=== PATIENT | male | born 1950 | race Caucasian/White ===

== ENCOUNTER 2016-10-23 10:37 | Emergency (ER) | payer OTHER ==
[~2016-10-23] VITALS: Ht 177.8 cm; Wt 105.0 kg
[~2016-10-23 10:37] MED LIST: ALPH200T2 PO; ASPI-535 PO; BENA40TA41 PO; CARV6.25 PO; CITA20TA11 PO; CLOP75TA27 PO; CRES10 PO; DAPA5TAB PO; DIVA500T7 PO; FENO145T19 PO; FLAX100016 PO; GLIM4TAB PO; HYDR-3605 PO; LANT3I SC; METF850T PO; NIAC500T22 PO; OMEG-135 PO; OMEP20CA16 PO; PREG150C PO; QUET100T PO; SITA100T8 PO; VITA1TAB83 PO; [UNRECOGNIZED DRUG - CODE] PO
[2016-10-23 10:40] VITALS: Ht 177.8 cm; Wt 105.0 kg
[2016-10-23] MEDS ORDERED: ASPIRIN 81 MG TAB PO STA (11:20)
[2016-10-23] MEDS ORDERED: SOD CHLORIDE 0.9% 1,000 ML IV STA (11:20)
[2016-10-23 11:37] LABS: ADD SCAN DIFF NO
[2016-10-23 11:42] LABS: BASOPHILS % 0.6 % (0.0-2.0); EOSINOPHILS # 0.5 10^3/ul (0.0-0.5); EOSINOPHILS % 8.6 % (0.0-7.0); HEMATOCRIT 40.4 % (42.0-52.0); HEMOGLOBIN 13.4 g/dl (14.0-18.0); LYMPHOCYTES # 1.7 10^3/ul (0.8-2.9); LYMPHOCYTES % 27.6 % (15.0-51.0); MEAN CORPUSCULAR HEMOGLOBIN 26.6 pg (29.0-33.0); MEAN CORPUSCULAR HGB CONC 33.2 g/dl (32.0-37.0); MEAN CORPUSCULAR VOLUME 80.2 fl (82.0-101.0); MEAN PLATELET VOLUME 10.8 fl (7.4-10.4); MONOCYTE # 0.5 10^3/ul (0.3-0.9); MONOCYTES % 7.3 % (0.0-11.0); NEUTROPHIL # 3.4 10^3/ul (1.6-7.5); NEUTROPHILS % 54.6 % (39.0-77.0); PLATELET COUNT 126 10^3/UL (140-415); RED BLOOD COUNT 5.04 10^6/ul (4.70-6.10); WHITE BLOOD COUNT 6.2 10^3/ul (4.8-10.8)
--- NOTE | 2016-10-23 12:01 | RADRPT ---
PROCEDURE: XR Chest. CLINICAL INDICATION: Chest Pain. TECHNIQUE: PA and Lateral views of the chest were obtained. COMPARISON: Chest x-ray 07/29/2014 04:15 p.m. FINDINGS: The soft tissues are normal. There is a suboptimal inspiratory effort given the heart transverse co nfiguration. The heart, cardiomediastinal silhouette and hilar structures are normal. The pulmonary vasculature is normal. There is a left-sided aorta. There are osteophytes in the thoracic spine. T he lungs are clear. The costophrenic angles are normal. IMPRESSION: 1. Stable chest x-ray with no evidence of active cardiopulmonary disease. 2. Spondylosis of the thoracic spine. RPTAT:AAJJ Physician Pattie Date Time Electronically viewed and signed by Physician Pattie on 10/23/2016 12:00 DIEUDONNE/
[2016-10-23 12:07] LABS: ANION GAP 17 (8-16); BLOOD UREA NITROGEN 12 mg/dl (7-20); CARBON DIOXIDE 23 mmol/L (21-31); CHLORIDE 101 mmol/L (97-110); GLUCOSE 230 mg/dl (70-220); POTASSIUM 4.5 mmol/L (3.5-5.1); SODIUM 136 mmol/L (135-144)
[2016-10-23 12:09] LABS: INR 1.04; PROTIME 13.6 Sec (12.2-14.2); PT RATIO 1.1
[2016-10-23 12:10] LABS: PARTIAL THROMBOPLASTIN TIME 29.6 Sec (25.0-35.0)
[2016-10-23] MEDS ORDERED: IOHEXOL 100 ML ONE ×2 (12:18)
[2016-10-23] MEDS ORDERED: SOD CHLORIDE 0.9% 100 ML ONE (12:18)
[2016-10-23 12:25] LABS: TROPONIN-I < 0.012 ng/ml (0.00-0.12)
[2016-10-23] MEDS ORDERED: ONDA4TAB14 PO (14:59)
[2016-10-23 15:00] VITALS: BP 142/80; PULSE 76; RESP 18
--- NOTE | 2016-10-23 16:30 | RADRPT ---
PROCEDURE: CT Chest, Abdomen and Pelvis angiogram with contrast. CLINICAL INDICATION: Pain. TECHNIQUE: CT scan of the chest, abdomen, and pelvis with contrast was performed on a multi-detect or high-resolution CT scanner. The patient was scanned following the uncomplicated intravenous admi nistration of 100 cc of Isovue 300 intravenous contrast. Coronal and sagittal reformatted images we re obtained from the axial source images. Images were reviewed on a high-resolution PACS workstation . DOSE: CTDI = 49/20/16 mGy and the DLP = 1869 mGy-cm. One or more of the following dose reduction t echniques were used: Automated exposure control, Adjustment of the mA and/or kV according to patient size, and/or use of iterative reconstruction technique. COMPARISON: Abdominal CT 11/09/2015 FINDINGS: Vascular: No evidence of aortic dissection or aortic aneurysm. No intraluminal filling defects are identified in the main bilateral pulmonary arteries. The segmental and subsegmental pulmonary arteries are not well evaluated due to respiratory artifact. The celiac artery, superior mesenteric artery, and inf erior mesenteric arteries are patent. The renal arteries are patent bilaterally. The bilateral com mon iliac, external iliac and common femoral arteries are patent. A retro aortic left renal vein is seen. Coronary arterial and aortic atherosclerosis is identified. CT chest: Scattered bibasilar atelectasis. No mediastinal hematoma. The airway is patent. No pleural or pericardial effusion. No mediastinal or hilar lymphadenopathy is seen. CT abdomen and pelvis: Diffuse hypoattenuation of the liver. No pancreatic ductal dilatation. The spleen and adrenals are unremarkable. The portal vein is patent. The gallbladder is contracted. No focal pericholecystic inflammatory changes.No hydronephrosis. No evidence of bowel obstruction. No significant ascites or pneumoperitoneum. No evidence of retroperitoneal lymphadenopathy. Mildly prominent prostate gla nd bulging into the base of the bladder. There is thickening of the anterior superior bladder wall which is nonspecific in the setting of under distension. Lower lumbar fusion hardware with lumbar de generative changes. IMPRESSION: No evidence of aortic aneurysm or aortic dissection. No evidence of central pulmonary embolus. Hepatic steatosis. Coronary arterial and aortic atherosclerosis is identified. RPTAT: AA .Michael Cee MD, MD Date Time Electronically viewed and signed by .Michael Cee MD, MD on 10/23/2016 16:30 .T/
--- NOTE | 2016-10-23 16:32 | ERD ---
ER Documentation Chief Complaint Date/Time DATE: 10/23/16 TIME: 16:27 Chief Complaint nauseated; sweating and headache x 4 days HPI Patient is a 66-year-old male with hypertension and diabetes who presents with nausea and vomiting and sweating. He said this is been there for the past 4 days. He also has a runny nose. He feels flank pain. He has no shortness of breath. He has had no treatment as of yet. The patient does have subjective fever. The patient said that his primary doctor is Dr. Go. ROS All systems reviewed and are negative except as per history of present illness. Medications Home Meds Active Scripts Ondansetron (Ondansetron Odt) 4 Mg Tab.rapdis, 4 MG PO Q6H Y for NAUSEA AND/OR VOMITING, #30 TAB Prov:SAMIR STEWART MD 10/23/16 Reported Medications Dapagliflozin Propanediol (Farxiga) 5 Mg Tablet, 5 MG PO DAILY, #30 TAB 05/27/16 Clopidogrel Bisulfate (Clopidogrel) 75 Mg Tablet, 75 MG PO DAILY, #30 TAB 05/27/16 Aspirin Ec (Aspir 81) 81 Mg Tablet.dr, 81 MG PO DAILY, #30 TAB 05/27/16 Lecithin (Lecithin) 1,200 Mg Capsule, 1200 MG PO DAILY, CAP 05/27/16 Flaxseed Oil (FLAX SEED OIL) 1,000 Mg Capsule, 1000 MG PO DAILY, CAP 05/27/16 Niacinamide (Niacin) 500 Mg Tablet, 500 MG PO DAILY, TAB 05/27/16 Vitamin B Complex (B Complex # 1) 1 Each Tablet, 1 EACH PO DAILY, TAB 05/27/16 Alpha Lipoic Acid (Alpha Lipoic Acid) 200 Mg Tablet, 200 MG PO DAILY, TAB 05/27/16 [place]-3 Fatty Acids/Fish Oil (Fish Oil 1,000 mg Capsule) 1 Each Capsule, 2 EACH PO DAILY, CAP 05/27/16 Hydrocodone/Acetaminophen (Hydrocodon-Acetaminoph 7.5-325) 1 Each Tablet, 1 EACH PO BID Y for PAIN LEVEL 4-6, TAB 05/27/16 Insulin Glargine* (Lantus*) 100 Unit/Ml Soln, SC DAILY, #1 VIAL 05/27/16 Pregabalin* (Lyrica*) 150 Mg Capsule, 100 MG PO DAILY, CAP 01/08/16 Omeprazole* (Omeprazole*) 20 Mg Capsule.dr, 20 MG PO DAILY, CAP 07/29/14 Sitagliptin* (Januvia*) 100 Mg Tablet, 100 MG PO DAILY, TAB 07/29/14 Rosuvastatin Calcium* (Crestor*) 10 Mg Tablet, 10 MG PO HS, TAB 07/29/14 Metformin Hcl* (Metformin Hcl*) 850 Mg Tablet, 850 MG PO TID, TAB 07/29/14 Benazepril Hcl* (Benazepril Hcl*) 40 Mg Tablet, 40 MG PO DAILY, TAB 07/29/14 Carvedilol* (Coreg*) 6.25 Mg Tablet, 12.5 MG PO BID, TAB 07/29/14 Glimepiride* (Glimepiride*) 4 Mg Tablet, 4 MG PO DAILY, TAB 07/29/14 Fenofibrate Nanocrystallized* (Fenofibrate*) 145 Mg Tablet, 145 MG PO DAILY, TAB 07/29/14 Quetiapine Fumarate* (Seroquel*) 100 Mg Tablet, 100 MG PO QID, TAB 07/29/14 Citalopram Hydrobromide* (Celexa*) 20 Mg Tablet, 20 MG PO DAILY, TAB 07/29/14 Divalproex Sodium* (Depakote ER*) 500 Mg Tabsr, 500 MG PO BID, TAB.SA 07/29/14 Allergies Allergies: Coded Allergies: No Known Allergy (Unverified , 01/08/16) PMhx/Soc History of Surgery: Yes (laminectomy 2013) Anesthesia Reaction: No Hx Neurological Disorder: No Hx Respiratory Disorders: No Hx Cardiac Disorders: Yes (HTN, CAD, high cholesterol) Hx Psychiatric Problems: No Hx Miscellaneous Medical Probl: No Hx Alcohol Use: No Hx Substance Use: No Hx Tobacco Use: Yes (Snuff) Smoking Status: Never smoker FmHx Family History: coronary disease Physical Exam Vitals Vital Signs Date Time Temp Pulse Resp B/P Pulse Ox O2 Delivery O2 Flow Rate FiO2 10/23/16 15:00 76 18 142/80 99 Room Air 10/23/16 10:40 98.0 83 19 155/86 99 Physical Exam Const: Mild distress Head: Atraumatic Eyes: Normal Conjunctiva ENT: Normal External Ears, Nose and Mouth. Neck: Full range of motion..~ No meningismus. Resp: Clear to auscultation bilaterally Cardio: Regular rate and rhythm, no murmurs Abd: Soft, non tender, non distended. Normal bowel sounds Skin: Pale and diaphoretic Back: No midline or flank tenderness Ext: No cyanosis, or edema Neur: Awake and alert Psych: Normal Mood and Affect Result Diagram: 10/23/16 1129 10/23/16 1129 Results 24 hrs Laboratory Tests Test 10/23/16 11:29 White Blood Count 6.210^3/ul Red Blood Count 5.0410^6/ul Hemoglobin 13.4g/dl Hematocrit 40.4% Mean Corpuscular Volume 80.2fl Mean Corpuscular Hemoglobin 26.6pg Mean Corpuscular Hemoglobin Concent 33.2g/dl Red Cell Distribution Width 16.0% Platelet Count 05449^3/UL Mean Platelet Volume 10.8fl Neutrophils % 54.6% Lymphocytes % 27.6% Monocytes % 7.3% Eosinophils % 8.6% Basophils % 0.6% Nucleated Red Blood Cells % 0.0/100WBC Neutrophils # 3.410^3/ul Lymphocytes # 1.710^3/ul Monocytes # 0.510^3/ul Eosinophils # 0.510^3/ul Basophils # 0.010^3/ul Nucleated Red Blood Cells # 0.010^3/ul Prothrombin Time 13.6Sec Prothrombin Time Ratio 1.1 INR International Normalized Ratio 1.04 Activated Partial Thromboplast Time 29.6Sec Sodium Level 136mmol/L Potassium Level 4.5mmol/L Chloride Level 101mmol/L Carbon Dioxide Level 23mmol/L Anion Gap 17 Blood Urea Nitrogen 12mg/dl Creatinine 1.00mg/dl Glucose Level 230mg/dl Calcium Level 10.0mg/dl Troponin I < 0.012ng/ml Current Medications Medications (Trade) Dose Ordered Sig/Shannan Route PRN Reason Start Time Stop Time Status Last Admin Dose Admin Sodium Chloride (NS) 1,000 ml @ 1,000 mls/hr Q1H STAT IV 10/23/16 11:20 10/23/16 12:19 DC 10/23/16 11:30 Aspirin 162 mg 162 mg ONCE STAT PO 10/23/16 11:20 10/23/16 11:21 DC 10/23/16 11:29 Iohexol 100 ml @ ud STK-MED ONCE .ROUTE 10/23/16 12:18 10/23/16 12:19 DC 10/23/16 12:45 Iohexol 100 ml @ ud STK-MED ONCE .ROUTE 10/23/16 12:18 10/23/16 12:19 DC 10/23/16 13:45 Sodium Chloride (NS) 100 ml @ ud STK-MED ONCE .ROUTE 10/23/16 12:18 10/23/16 12:19 DC 10/23/16 12:45 Procedures/MDM EKG read by me: Rate/Rhythm: Regular rate and rhythm at a normal rate Intervals: Normal Impression: No evidence of ischemia or arrhythmia PROCEDURE: XR Chest. CLINICAL INDICATION: Chest Pain. TECHNIQUE: PA and Lateral views of the chest were obtained. COMPARISON: Chest x-ray 07/29/2014 04:15 p.m. FINDINGS: The soft tissues are normal. There is a suboptimal inspiratory effort given the heart transverse configuration. The heart, cardiomediastinal silhouette and hilar structures are normal. The pulmonary vasculature is normal. There is a left-sided aorta. There are osteophytes in the thoracic spine. The lungs are clear. The costophrenic angles are normal. IMPRESSION: 1. Stable chest x-ray with no evidence of active cardiopulmonary disease. 2. Spondylosis of the thoracic spine. RPTAT:AAJJ Physician Pattie Date Time Electronically viewed and signed by Hernandez Dougherty Physician on 10/23/2016 12:00 CT scan of the abdomen and pelvis as well as the chest are pending radiology read at this time. Patient is a 66-year-old male with hypertension diabetes who presents with nausea, vomiting, and diaphoresis. I was concerned for potential acute coronary syndrome as well as pulmonary embolism versus dissection. I want to admit him to the hospital however the patient is refusing and wants to sign out AGAINST MEDICAL ADVICE. He actually signed out AGAINST MEDICAL ADVICE prior to the results of his CT scan being read. The patient will need to follow-up with a primary doctor within 24 hours. The patient can return for any worsening symptoms. The patient can return for any worsening symptoms. Departure Diagnosis: Primary Impression: Moderate nausea and vomiting Additional Impressions: Abdominal pain Abdominal location: generalized Qualified Code: R10.84 - Generalized abdominal pain Hyperglycemia Anemia Anemia type: unspecified type Qualified Code: D64.9 - Anemia, unspecified type Condition: Fair Patient Instructions: Abdominal Pain, Vomiting (6Y-Adult) Referrals: Your doctor Additional Instructions: FOLLOW UP WITH YOUR PRIMARY CARE PHYSICIAN TOMORROW.Return to this facility if you are not improving as expected. SAMIR STEWART MD October 23, 2016 16:31
== END 2016-10-23 15:16 | disposition left against medical advice (07) ==
LOC: FTE 10:37
DX: R11.2 Nausea with vomiting, unspecified (principal); R10.84 Generalized abdominal pain; E11.65 Type 2 diabetes mellitus with hyperglycemia; D64.9 Anemia, unspecified; I10 Essential (primary) hypertension; I25.10 Atherosclerotic heart disease of native coronary artery without angina pectoris; Z79.4 Long term (current) use of insulin; Z79.82 Long term (current) use of aspirin; Z87.891 Personal history of nicotine dependence; Z79.84 Long term (current) use of oral hypoglycemic drugs
CPT/HCPCS: 36415; 71010; 71275; 74177; 80048; 84484; 85025; 85610; 85730; 93005; 99285; J7030; Q9967

== ENCOUNTER 2017-09-05 10:35 | Inpatient (IN) | END 2017-09-05 11:20 | disposition home or self-care (01) | DRG 552 ==

== ENCOUNTER 2017-09-13 07:04 | Inpatient (IN) | END 2017-09-14 18:27 | DRG 473 ==

== ENCOUNTER 2018-01-26 13:10 | Emergency (ER) | END 2018-01-26 16:44 | disposition home or self-care (01) ==

== ENCOUNTER 2018-02-14 10:33 | Emergency (ER) | END 2018-02-14 13:04 | disposition home or self-care (01) ==

== ENCOUNTER 2018-08-30 11:20 | Emergency (ER) | payer OTHER ==
[~2018-08-30] VITALS: Ht 177.8 cm; Wt 98.4 kg
[~2018-08-30 11:20] MED LIST changes: -ALPH200T2 PO; +AMLO5TAB4 PO; -ASPI-535 PO; -BENA40TA41 PO; +BENA40TA56 PO; +BISA10SU75 PR; +CARV12.579 PO; -CARV6.25 PO; -CLOP75TA27 PO; -CRES10 PO; +CYCL10TA7 PO; -DAPA5TAB PO; +DIPH1TAB PO; +DIVA-75 PO; -DIVA500T7 PO; +DOCU-216 PO; -FENO145T19 PO; +FENO145T37 PO; -FLAX100016 PO; -HYDR-3605 PO; -METF850T PO; +METF850T13 PO; -NIAC500T22 PO; -OMEG-135 PO; +OXYC-209 PO; -PREG150C PO; -QUET100T PO; +QUET100T32 PO; +RANO500T2 PO; +ROSU10TA55 PO; +SITA100T11 PO; -SITA100T8 PO; -VITA1TAB83 PO; -[UNRECOGNIZED DRUG - CODE] PO
[2018-08-30 11:50] VITALS: Ht 177.8 cm; Wt 98.4 kg
[2018-08-30] MEDS ORDERED: HYDR-4011 PO (12:55)
[2018-08-30] MEDS ORDERED: METH750T93 PO (12:55)
--- NOTE | 2018-08-30 12:56 | ERD ---
ER Documentation Chief Complaint Chief Complaint LOWER BACK PAIN RADAITING TO THE NECK ROS All systems reviewed and are negative except as per history of present illness. Medications Home Meds Active Scripts Methocarbamol* (Robaxin*) 750 Mg Tablet, 750 MG PO TID for muscle spasm, #30 TAB Prov:SYD JO DO 08/30/18 Hydrocodone/Acetaminophen ([place] 5-325 Tablet) 1 Each Tablet, 1 EACH PO Q6H PRN for PAIN, #10 TAB Prov:SYD JO DO 08/30/18 Oxycodone HCl/Acetaminophen (Percocet 10-325 mg Tablet) 1 Each Tablet, 1 EACH PO Q8H PRN for PAIN, #20 TAB Prov:SYD JO DO 02/14/18 Diphenoxylate HCl/Atropine (Lomotil 2.5-0.025 mg Tablet) 1 Each Tablet, 1 TAB PO QID PRN for DIARRHEA, #10 TAB Prov:ARLINE GUTIÉRREZ MD 01/26/18 Docusate Sodium (Dok) 100 Mg Capsule, 100 MG PO BID for 30 Days, CAP Prov:BONG PINEDA MD 09/14/17 Bisacodyl* (Bisacodyl*) 10 Mg Supp, 10 MG SD DAILY PRN for CONSTIPATION for 30 Days, SUPP Prov:BONG PINEDA MD 09/14/17 Quetiapine Fumarate* (Quetiapine Fumarate*) 100 Mg Tablet, 200 MG PO HS for 30 Days, #30 TAB Prov:BONG PINEDA MD 09/14/17 Quetiapine Fumarate* (Quetiapine Fumarate*) 100 Mg Tablet, 100 MG PO DAILY for 30 Days, #30 TAB Prov:BONG PINEDA MD 09/14/17 Quetiapine Fumarate* (Quetiapine Fumarate*) 100 Mg Tablet, 100 MG PO WITH LUNCH for 30 Days, TAB Prov:BONG PINEDA MD 09/14/17 Cyclobenzaprine Hcl* (Cyclobenzaprine Hcl*) 10 Mg Tablet, 5 MG PO TID PRN for MUSCLE SPASMS for 30 Days, TAB Prov:BONG IPNEDA MD 09/14/17 Reported Medications Insulin Glargine* (Lantus*) 100 Unit/Ml Soln, 100 UNIT SC QHS, #1 VIAL 09/13/17 Amlodipine Besylate* (Norvasc*) 5 Mg Tablet, 5 MG PO DAILY, TAB 3/28/18 Ranolazine* (Ranexa*) 500 Mg Tab.sr.12h, 500 MG PO Q12, TAB 09/13/17 Glimepiride* (Glimepiride*) 4 Mg Tablet, 4 MG PO WITH BREAKFAST, TAB 09/13/17 Sitagliptin* (Januvia*) 100 Mg Tablet, 100 MG PO DAILY, #30 TAB 09/13/17 Carvedilol* (Carvedilol*) 12.5 Mg Tablet, 12.5 MG PO BID, #60 TAB 09/13/17 Rosuvastatin Calcium* (Crestor*) 10 Mg Tablet, 10 MG PO QHS, #30 TAB 09/13/17 Omeprazole* (Omeprazole*) 20 Mg Capsule.dr, 20 MG PO DAILY, #30 CAP 09/13/17 Fenofibrate Nanocrystallized* (Fenofibrate*) 145 Mg Tablet, 145 MG PO DAILY, TAB 09/13/17 Metformin Hcl* (Metformin Hcl*) 850 Mg Tablet, 850 MG PO WITH BREAKFAST DINNE, #30 TAB 09/13/17 Benazepril Hcl* (Benazepril Hcl*) 40 Mg Tablet, 40 MG PO BID, #30 TAB 09/13/17 Citalopram Hydrobromide* (Celexa*) 20 Mg Tablet, 20 MG PO DAILY, #30 TAB 09/13/17 Divalproex Sodium* (Depakote ER*) 500 Mg Tabsr, 1000 MG PO DAILY, #60 TAB.SA 09/13/17 Allergies Allergies: Coded Allergies: No Known Allergy (Unverified , 08/30/18) PMhx/Soc History of Surgery: Yes (TONSILLECTOMY, LUMBAR LAMINECTOMY,neck sx, cataract) Anesthesia Reaction: No Hx Neurological Disorder: No Hx Respiratory Disorders: No Hx Cardiac Disorders: Yes (HTN,HLP) Hx Psychiatric Problems: No Hx Miscellaneous Medical Probl: Yes (HTN, HLP, DM) Hx Alcohol Use: No Hx Substance Use: No Hx Tobacco Use: Yes Smoking Status: Former smoker Physical Exam Vitals Vital Signs Date Temp Pulse Resp B/P (MAP) Pulse Ox O2 O2 Flow FiO2 Time Delivery Rate 08/30/18 97.9 80 19 133/72 98 11:50 (92) Physical Exam Const: No acute distress Head: Atraumatic Eyes: Normal Conjunctiva ENT: Normal External Ears, Nose and Mouth. Neck: Full range of motion. No meningismus. Resp: Clear to auscultation bilaterally Cardio: Regular rate and rhythm, no murmurs Abd: Soft, non tender, non distended. Normal bowel sounds Skin: No petechiae or rashes Back: No midline or flank tenderness Ext: No cyanosis, or edema Neur: Awake and alert Psych: Normal Mood and Affect Results 24 hrs Current Medications Medications Dose Sig/Shannan Start Time Status Last (Trade) Ordered Route PRN Stop Time Admin Dose Reason Admin 750 mg ONCE ONCE 08/30/18 Methocarbamol PO 13:00 (Robaxin) 08/30/18 13:01 10 mg ONCE ONCE 08/30/18 Dexamethasone IM 13:00 (Decadron) 08/30/18 13:01 Departure Diagnosis: Primary Impression: Back pain Back pain location: low back pain Chronicity: unspecified Back pain laterality: unspecified Sciatica presence: with sciatica Sciatica laterality: bilateral sciatica Qualified Codes: M54.42 - Lumbago with sciatica, left side; M54.41 - Lumbago with sciatica, right side Condition: Fair Patient Instructions: Back Pain W/ Sciatica Referrals: DELONTE SOOD (PCP) Additional Instructions: Call your primary care doctor TOMORROW for an appointment during the next 1-2 days.See the doctor sooner or return here if your condition worsens before your appointment time. SYD JO DO Aug 30, 2018 12:56
[2018-08-30] MEDS ORDERED: METHOCARBAMOL 750 MG TAB PO ONE (13:00)
[2018-08-30] MEDS ORDERED: DEXAMETHASONE 10 MG/ML 1 ML INJ IM ONE (13:00)
[2018-08-30] MEDS ORDERED: BACL10TA PO (14:02)
== END 2018-08-30 13:29 | disposition home or self-care (01) ==
LOC: FTE 11:20
DX: M54.42 Lumbago with sciatica, left side (principal); M54.41 Lumbago with sciatica, right side; I10 Essential (primary) hypertension; E11.9 Type 2 diabetes mellitus without complications; Z79.4 Long term (current) use of insulin
CPT/HCPCS: 99283; J1100

== ENCOUNTER 2018-09-08 11:49 | Emergency (ER) | payer OTHER ==
[~2018-09-08] VITALS: Ht 177.8 cm; Wt 98.2 kg
[~2018-09-08 11:49] MED LIST changes: +BACL10TA PO; +HYDR-4011 PO
[2018-09-08 12:06] VITALS: BP 129/66; PULSE 78; RESP 18; Ht 177.8 cm; Wt 98.2 kg
== END 2018-09-08 15:00 | disposition left against medical advice (07) ==
LOC: FTE 11:49
DX: Z53.21 Procedure and treatment not carried out due to patient leaving prior to being seen by health care provider (principal)